=== PATIENT | male | born 2000 | race Caucasian/White ===

== ENCOUNTER 2019-10-05 20:44 | Emergency (ER) | payer BC ==
[2019-10-05 21:30] VITALS: BP 132/65
--- NOTE | 2019-10-05 21:41 | ED ---
Abdominal Pain/Male - HPI Summary HPI Summary: 19 yr old male with the complaint of left upper quadrant pain, onset last evening, worse after eating, and feeling of being full early. He does drink ETOH, but says he didn't this past weekend. He denies fever, chills. He has some pain radiating into the back on the left side as well. He denies prior surgery on abdomen. No fever or chills. His pain is moderate. - History of Current Complaint Chief Complaint: UCAbdominalPain Stated Complaint: LT SIDE PAIN Time Seen by Provider: 10/05/19 21:26 Pain Intensity: 4 - Allergies/Home Medications Allergies/Adverse Reactions: Allergies Allergy/AdvReac Type Severity Reaction Status Date / Time No Known Allergies Allergy Verified 10/05/19 21:24 Home Medications: Home Medications NK [No Home Medications Reported] 10/05/19 [History Confirmed 10/05/19] PMH/Surg Hx/FS Hx/Imm Hx - Surgical History Surgery Procedure, Year, and Place: LEFT ANKLE- 2 SCREWS, 1 PLATE Infectious Disease History: No Infectious Disease History: Denies: Traveled Outside the [place] in Last 30 Days - Family History Known Family History: Positive: None - Social History Occupation: Student Alcohol Use: Occasionally Substance Use Type: Reports: None Smoking Status (MU): Never Smoked Tobacco Review of Systems Constitutional: Negative Positive: Abdominal Pain All Other Systems Reviewed And Are Negative: Yes Physical Exam Triage Information Reviewed: Yes Vital Signs On Initial Exam: Initial Vitals Temp Pulse Resp BP Pulse Ox 98.8 F 80 16 132/65 99 10/05/19 21:25 10/05/19 21:25 10/05/19 21:25 10/05/19 21:25 10/05/19 21:25 Vital Signs Reviewed: Yes Appearance: Positive: Well-Appearing, No Pain Distress Skin: Positive: Warm, Skin Color Reflects Adequate Perfusion Head/Face: Positive: Normal Head/Face Inspection Eyes: Positive: EOMI ENT: Positive: Normal ENT inspection Neck: Positive: Nontender Respiratory/Lung Sounds: Positive: Clear to Auscultation, Breath Sounds Present Cardiovascular: Positive: RRR. Negative: Murmur Abdomen Description: Positive: Nontender. Negative: CVA Tenderness (R), CVA Tenderness (L), Distended Musculoskeletal: Positive: Strength/ROM Intact Neurological: Positive: Sensory/Motor Intact, Alert, Oriented to Person Place, Time, CN Intact II-III Psychiatric: Positive: Normal Diagnostics - Vital Signs Vital Signs Temp Pulse Resp BP Pulse Ox 10/05/19 21:25 98.8 F 80 16 132/65 99 - Laboratory Lab Statement: Any lab studies that have been ordered have been reviewed, and results considered in the medical decision making process. Abdominal Pain Male Course/Dx - Course Course Of Treatment: 19 yr old with left upper abdominal pain. TO the ER for labs and further work up. - Diagnoses Provider Diagnoses: Abdominal pain, left upper quadrant Discharge ED - Sign-Out/Discharge Documenting (check all that apply): Patient Departure All imaging exams completed and their final reports reviewed: No Studies - Discharge Plan Condition: Good Disposition: HOME-RECOMMEND TO ED Patient Education Materials: Abdominal Pain (ED) Referrals: No Primary Care Phys,NOPCP [Primary Care Provider] - [facility] [Outside] - 1 Day Additional Instructions: YOU NEED TO GO TO THE ER FOR FURTHER WORK UP OF YOUR ABDOMINAL AND SIDE PAIN. DO NOT DELAY GOING> - Billing Disposition and Condition Condition: GOOD Disposition: Home-Recommend to ED
== END 2019-10-05 21:45 | disposition home health service (06) ==
LOC: UCCORT 20:44
DX: R10.12 Left upper quadrant pain (principal)
CPT/HCPCS: 99202; G0463

== ENCOUNTER 2019-10-16 10:47 | Emergency (ER) | payer BC ==
[2019-10-16 11:33] VITALS: BP 130/57
[2019-10-16] MEDS ORDERED: Ibuprofen TAB* 400 MG PO ONE (11:37)
--- NOTE | 2019-10-16 12:48 | UC ---
Shoulder Pain HPI - HPI Summary HPI Summary: 19 yo male with left shoulder pain after falling directly on it yesterday He is right handed - History of Current Complaint Chief Complaint: UCUpperExtremity Stated Complaint: L SHOULDER INJ Time Seen by Provider: 10/16/19 12:19 Hx Obtained From: Patient Onset/Duration: Sudden Onset, Lasting Hours Timing: Constant Severity Initially: Severe Severity Currently: Mild Location Of Pain: Is Discrete @ Pain Intensity: 0 Pain Scale Used: 0-10 Numeric Character: Aching Aggravating Factor(s): Movement Alleviating Factor(s): Rest Associated Signs And Symptoms: Positive: Swelling Related History: Dominant Hand Right Torso: 1 - swollen/tender .eft AC joint - Allergies/Home Medications Allergies/Adverse Reactions: Allergies Allergy/AdvReac Type Severity Reaction Status Date / Time No Known Allergies Allergy Verified 10/16/19 11:29 Home Medications: Home Medications Ibuprofen TAB* [Motrin TAB* 600 MG] 600 mg PO Q6H PRN 10/16/19 [History Confirmed 10/16/19] PMH/Surg Hx/FS Hx/Imm Hx Previously Healthy: Yes - Surgical History Surgical History: Yes Surgery Procedure, Year, and Place: LEFT ANKLE- 2 SCREWS, 1 PLATE - Family History Known Family History: Positive: Hypertension, Non-Contributory - Social History Alcohol Use: Occasionally Substance Use Type: None Smoking Status (MU): Never Smoked Tobacco Review of Systems All Other Systems Reviewed And Are Negative: Yes Constitutional: Positive: Negative Skin: Positive: Negative Eyes: Positive: Negative ENT: Positive: Negative Respiratory: Positive: Negative Cardiovascular: Positive: Negative Gastrointestinal: Positive: Negative Genitourinary: Positive: Negative Motor: Positive: Negative Neurovascular: Positive: Negative Musculoskeletal: Positive: Arthralgia - left shoulder Neurological: Positive: Negative Psychological: Positive: Negative Physical Exam Triage Information Reviewed: Yes Appearance: Well-Appearing, No Pain Distress, Well-Nourished Vital Signs: Initial Vital Signs Temp 98.6 F 10/16/19 11:29 Pulse 77 10/16/19 11:29 Resp 16 10/16/19 11:29 BP 130/57 10/16/19 11:29 Pulse Ox 100 10/16/19 11:29 Vital Signs Reviewed: Yes Eyes: Positive: Conjunctiva Clear ENT: Positive: Hearing grossly normal, Uvula midline. Negative: Nasal congestion, Nasal drainage, Trismus, Muffled voice, Hoarse voice Neck: Positive: Supple, Nontender, No Lymphadenopathy Respiratory: Positive: Lungs clear, Normal breath sounds, No respiratory distress Cardiovascular: Positive: RRR, No Murmur Musculoskeletal: Positive: ROM Limited @ - right shoulder: limited ABDUCTION due to pain, Edema @ - left ACjoint Neurological: Positive: Alert Psychological Exam: Normal Skin Exam: Normal Diagnostics - Radiology No standard instances Radiology Interpretation Completed By: Radiologist Summary of Radiographic Findings: AC joint separation Shoulder Course/Dx - Differential Dx/Diagnosis Provider Diagnosis: Separation of left acromioclavicular joint, type 3 Discharge ED - Sign-Out/Discharge Documenting (check all that apply): Patient Departure All imaging exams completed and their final reports reviewed: Yes - Discharge Plan Condition: Stable Disposition: HOME Patient Education Materials: Acromioclavicular Separation (ED), How to Use a Sling (ED) Referrals: Niya Muse MD [Medical Doctor] - (call and make and appt for next week ...ask for [place] appt [phone]) - Billing Disposition and Condition Condition: STABLE Disposition: Home
== END 2019-10-16 13:46 | disposition home or self-care (01) ==
LOC: UCCORT 10:47
DX: S43.102A Unspecified dislocation of left acromioclavicular joint, initial encounter (principal); W19.XXXA Unspecified fall, initial encounter; Y92.9 Unspecified place or not applicable
CPT/HCPCS: 99213; A9270-GY; G0463